=== PATIENT | female | born 2000 | race African-American/Black ===

== ENCOUNTER 2022-01-11 14:13 | Outpatient (CLI) | payer OTHER ==
[~2022-01-11 14:13] MED LIST: Iopamidol 370 76% 100 ML VIAL ONE
== END 2022-01-11 14:14 | disposition home or self-care (01) ==
LOC: CT 14:13
PROVIDERS: ATTEND Obstetrics & Gynecology
DX: T19.3XXA Foreign body in uterus, initial encounter (principal); Z97.5 Presence of (intrauterine) contraceptive device
CPT/HCPCS: 72194